=== PATIENT | female | born 1950 | race Caucasian/White ===

== ENCOUNTER 2020-09-22 04:50 | Day surgery (SDC) | payer OTHER, MEDICARE ==
[2020-09-20 14:32] VITALS: BMI 19.3
[2020-09-22 12:26] VITALS: TEMP 97
[2020-09-22 13:04] VITALS: BP 129/72; PULSE 79
== END 2020-09-22 12:56 | disposition home or self-care (01) ==
LOC: JASU-ENDO 04:50
PROVIDERS: ATTEND Internal Medicine Gastroenterology
PROC: 0DB68ZX Excision of Stomach, Via Natural or Artificial Opening Endoscopic, Diagnostic (ICD-10-PCS; 2020-09-22)
PROC: 0DB98ZX Excision of Duodenum, Via Natural or Artificial Opening Endoscopic, Diagnostic (ICD-10-PCS; principal; 2020-09-22 11:30)
DX: K25.9 Gastric ulcer, unspecified as acute or chronic, without hemorrhage or perforation (principal); K29.50 Unspecified chronic gastritis without bleeding; K29.80 Duodenitis without bleeding
CPT/HCPCS: 88305-TC; 88342-TC

== ENCOUNTER 2020-09-28 04:51 | Day surgery (SDC) | payer OTHER, MEDICARE ==
[2020-09-25 18:58] VITALS: BMI 18.3
[2020-09-28 13:46] VITALS: BP 110/73; PULSE 90; TEMP 98.5
== END 2020-09-28 15:20 | disposition home or self-care (01) ==
LOC: JRADIR 04:51
PROVIDERS: ATTEND Specialist
PROC: 0BBK3ZX Excision of Right Lung, Percutaneous Approach, Diagnostic (ICD-10-PCS; principal; 2020-09-28)
DX: C34.91 Malignant neoplasm of unspecified part of right bronchus or lung (principal)
CPT/HCPCS: 32408; 71046-TC-FY; 88305-TC; 88341-TC; 88342-TC